=== PATIENT | male | born 1960 | race Caucasian/White ===

== ENCOUNTER 2017-02-13 16:14 | Observation (INO) | payer OTHER ==
--- NOTE | 2017-02-13 16:28 | PDOC ---
History of Present Illness - General History Source: Patient Exam Limitations: No Limitations - History of Present Illness Initial Comments: 02/13/17 16:59 The patient is a 56 year old male, with a significant past medical history of kidney stone and parathyroidism, who presents to the emergency department s/p syncopal episode this morning. The patient reports he was at spin class, when he began to feel lightheaded and dizzy while riding the bike. Patient reports sitting down and remembering that he was dizzy, but before he knew it he slipped into a dreamlike state, and passed out. Patient states witnesses reported patient was unconscious for 30 seconds- 1 minute. Patient reports landing on his left arm and associated pain, but denies any head trauma, neck pain or back pain. Patient reports waking up on the floor, and feeling at baseline. When EMS arrived on scene, patient was examined and had his vitals taken, which were normal, but was told he was dehydrated. Patient reports having 2 bottles of water after episode, ambulating on his own and driving home. Patient reports he feels fine now, but was advised by his PCP to follow- up in the ED for further evaluation. As per , this spin class is part of the patients daily routine. Patient denies any fever, chills, or headache. He denies any chest pain, shortness of breath, diaphoresis, palpitations, or lower extremity edema. He denies any nausea, vomiting, diarrhea, constipation, or changes in urination. Allergies: NKDA Past Surgical History: None reported Social History: Non smoker. No ETOH or recreational drug use. <Devante Mercado - Last Filed: 02/13/17 16:59> <Maren Thorpe - Last Filed: 02/13/17 19:04> - General Chief Complaint: Syncope/Near Syncope Stated Complaint: FAINTED WHILE Time Seen by Provider: 02/13/17 16:28 Past History <Devante Mercado - Last Filed: 02/13/17 16:59> <Maren Thorpe - Last Filed: 02/13/17 19:04> - Past Medical History Allergies/Adverse Reactions: Allergies Allergy/AdvReac Type Severity Reaction Status Date / Time No Known Allergies Allergy Verified 02/13/17 16:16 Home Medications: Ambulatory Orders NK [No Known Home Medication] 02/13/17 Review of Systems - Review of Systems Able to Perform ROS?: Yes Comments:: 02/13/17 16:59 GENERAL/CONSTITUTIONAL: No fever or chills. No weakness. HEAD, EYES, EARS, NOSE AND THROAT: No change in vision. No ear pain or discharge. No sore throat. CARDIOVASCULAR: No chest pain or shortness of breath. RESPIRATORY: No cough, wheezing, or hemoptysis. GASTROINTESTINAL: No nausea, vomiting, diarrhea or constipation. GENITOURINARY: No dysuria, frequency, or change in urination. MUSCULOSKELETAL: Yes left arm pain. No other joint or muscle swelling or pain. No neck or back pain. SKIN: No rash NEUROLOGIC: Yes dizziness, lightheadedness, loss of consciousness. No headache or change in strength/sensation. ENDOCRINE: No increased thirst. No abnormal weight change. HEMATOLOGIC/LYMPHATIC: No anemia, easy bleeding, or history of blood clots. ALLERGIC/IMMUNOLOGIC: No hives or skin allergy. <Mercado,Giomilsy - Last Filed: 02/13/17 16:59> *Physical Exam - Vital Signs Last Vital Signs Temp Pulse Resp BP Pulse Ox 98.5 F 69 20 151/101 97 02/13/17 16:15 02/13/17 16:15 02/13/17 16:15 02/13/17 16:15 02/13/17 16:15 - Physical Exam Comments: 02/13/17 16:59 GENERAL: Awake, alert, and fully oriented, in no acute distress HEAD: No signs of trauma EYES: PERRLA, EOMI, sclera anicteric, conjunctiva clear ENT: Auricles normal inspection, hearing grossly normal, nares patent, oropharynx clear without exudates. Moist mucosa NECK: Normal ROM, supple, no lymphadenopathy, JVD, or masses LUNGS: Breath sounds equal, clear to auscultation bilaterally. No wheezes, and no crackles HEART: Regular rate and rhythm, normal S1 and S2, no murmurs, rubs or gallops ABDOMEN: Soft, nontender, normoactive bowel sounds. No guarding, no rebound. No masses EXTREMITIES: Normal range of motion, no edema. No clubbing or cyanosis. No cords, erythema, or tenderness NEUROLOGICAL: Cranial nerves II through XII grossly intact. Normal speech, normal gait SKIN: Warm, Dry, normal turgor, no rashes or lesions noted. <Devante Mercado - Last Filed: 02/13/17 16:59> ED Treatment Course - LABORATORY CBC & Chemistry Diagram: 02/13/17 17:11 02/13/17 17:11 <Maren Thorpe - Last Filed: 02/13/17 19:04> Medical Decision Making - Medical Decision Making 02/13/17 19:03 patient presents to the ED with exertional syncope. Labs and EKG are normal, but given exertional syncope will admit for observation,. <Maren Thorpe - Last Filed: 02/13/17 19:04> *DC/Admit/Observation/Transfer - Attestations Scribe Attestion: 02/13/17 16:59 Documentation prepared by Devante Mercado, acting as medical doctor md/medical director for Maren Thorpe MD. <Devante Mercado - Last Filed: 02/13/17 16:59> - Discharge Dispostion Admit: Yes <Maren Thorpe - Last Filed: 02/13/17 19:04> Diagnosis at time of Disposition: Syncope Qualifiers: Syncope type: unspecified Qualified Code(s): R55 - Syncope and collapse - Discharge Dispostion Condition at time of disposition: Good
[2017-02-13 17:39] LABS: BASO % 0.5 % (0-2.0); EOS % 1.6 % (0-4.5); MCH 30.3 pg (25.7-33.7); MCHC 33.6 g/dl (32.0-35.9); MEAN PLT VOLUME 8.5 fl (7.5-11.1); NEUT % 69.2 % (42.8-82.8); PLATELET COUNT 261 K/MM3 (134-434); RDW 12.5 % (11.9-15.9); WHITE BLOOD COUNT 8.5 K/mm3 (4.0-10.8)
[2017-02-13 17:52] LABS: ALBUMIN 4.3 g/dl (3.5-5.0); ALK PHOS 30 U/L (32-92); ANION GAP 9 (8-16); BILIRUBIN,TOTAL 0.7 mg/dl (0.2-1.0); CALCIUM 8.9 mg/dl (8.4-10.2); CO2 26 mmol/L (22-28); CPK 204 IU/L (39-308); CREATININE 1.2 mg/dl (0.6-1.3); GLUCOSE,RANDOM 85 mg/dl (74-106); SGOT/AST 27 U/L (10-42); SGPT/ALT 27 U/L (10-40); TOT PROT 6.4 g/dl (6.4-8.3)
[2017-02-13 17:58] LABS: TROPONIN I (DFP) < 0.03 ng/ml (0.03-0.50)
--- NOTE | 2017-02-13 20:09 | HP ---
CHIEF COMPLAINT: Syncopized during spin class PCP: Tracy Parikh [place] HISTORY OF PRESENT ILLNESS: 56 year-old male with a PMH significant for parathyroidism and one episode of kidney stones x 8 years, on no home medications. Attended a spin class starting at 6:00am today and at about 6:40am he felt dizzy and detached, as if in a dream state. Witnesses say he passed out for about 30 seconds. Patient states he normally hydrates before class and by the time he is 40 minutes into a class he usually drinks a large bottle of water. Today, he did not hydrate at all either before or during class, he found his water bottle full after he regained consciousness. Patient goes to spin class 6 days per week. He denies chest pain , palpitations, SOB, COLON, orthopnea, or lower extremity edema. Patient's last checkup was in 2015, his BP was 30 points lower. He feels his higher BP now is the result of weight gain. ER course was notable for: (1) BP 151/101 (3) ECG sinus rhythm @ 65bpm Recent Travel: September 2016 [place] PAST MEDICAL HISTORY: Parathyroidism Kidney stones x 8 years ago PAST SURGICAL HISTORY: None reported Social History: Smoking: no Alcohol: rare Drugs: no Family History: mother late 70's with "problematic kidney"; sister with one functioning kidney; father 85 a&w Allergies No Known Allergies Allergy (Verified 02/13/17 16:16) HOME MEDICATIONS: Home Medications Medication Instructions Recorded NK [No Known Home Medication] 02/13/17 REVIEW OF SYSTEMS CONSTITUTIONAL: Absent: fever, chills, diaphoresis, generalized weakness, malaise, loss of appetite, weight change HEENT: Absent: rhinorrhea, nasal congestion, throat pain, throat swelling, difficulty swallowing, mouth swelling, ear pain, eye pain, visual changes CARDIOVASCULAR: Present: syncope with prodrome Absent: chest pain, syncope, palpitations, irregular heart rate, lightheadedness , peripheral edema RESPIRATORY: Absent: cough, shortness of breath, dyspnea with exertion, orthopnea, wheezing, stridor, hemoptysis GASTROINTESTINAL: Absent: abdominal pain, abdominal distension, nausea, vomiting, diarrhea, constipation, melena, hematochezia GENITOURINARY: Absent: dysuria, frequency, urgency, hesitancy, hematuria, flank pain, genital pain MUSCULOSKELETAL: Absent: myalgia, arthralgia, joint swelling, back pain, neck pain SKIN: Absent: rash, itching, pallor HEMATOLOGIC/IMMUNOLOGIC: Absent: easy bleeding, easy bruising, lymphadenopathy, frequent infections ENDOCRINE: Absent: unexplained weight gain, unexplained weight loss, heat intolerance, cold intolerance NEUROLOGIC: Absent: headache, focal weakness or paresthesias, dizziness, unsteady gait, seizure, mental status changes, bladder or bowel incontinence PSYCHIATRIC: Absent: anxiety, depression, suicidal or homicidal ideation, hallucinations. PHYSICAL EXAMINATION Vital Signs - 24 hr 02/13/17 02/13/17 02/13/17 16:15 17:30 18:35 Temperature 98.5 F 98.5 F Pulse Rate 69 Pulse Rate [ 83 70 Left] Respiratory 20 20 20 Rate Blood Pressure 151/101 Blood Pressure 152/98 164/106 [Right Arm] O2 Sat by Pulse 97 98 98 Oximetry (%) GENERAL: Awake, alert, and fully oriented, in no acute distress. HEAD: Normal with no signs of trauma. EYES: Pupils equal, round and reactive to light, extraocular movements intact, sclera anicteric, conjunctiva clear. No lid lag. EARS, NOSE, THROAT: Ears normal, nares patent, oropharynx clear without exudates. Moist mucous membranes. NECK: Normal range of motion, supple without lymphadenopathy, JVD, or masses. LUNGS: Breath sounds equal, clear to auscultation bilaterally. No wheezes, and no crackles. No accessory muscle use. HEART: Regular rate and rhythm, normal S1 and S2 without murmur, rub or gallop. ABDOMEN: Soft, nontender, not distended, normoactive bowel sounds, no guarding, no rebound, no masses. No hepatomegaly or splenomegaly. MUSCULOSKELETAL: Normal range of motion at all joints. No bony deformities or tenderness. No CVA tenderness. UPPER EXTREMITIES: 2+ pulses, warm, well-perfused. No cyanosis. No clubbing. No peripheral edema. LOWER EXTREMITIES: 2+ pulses, warm, well-perfused. No calf tenderness. No peripheral edema. NEUROLOGICAL: Cranial nerves II-XII intact. Normal speech. Laboratory Results - last 24 hr 02/13/17 02/13/17 17:11 17:11 WBC 8.5 RBC 4.59 Hgb 13.9 Hct 41.3 MCV 90.0 MCH 30.3 MCHC 33.6 RDW 12.5 Plt Count 261 MPV 8.5 Neutrophils % 69.2 Lymphocytes % 19.4 Monocytes % 9.3 Eosinophils % 1.6 Basophils % 0.5 Sodium 136 Potassium 4.1 Chloride 101 Carbon Dioxide 26 Anion Gap 9 BUN 23 H Creatinine 1.2 Creat Clearance w eGFR > 60 Random Glucose 85 Calcium 8.9 Total Bilirubin 0.7 AST 27 ALT 27 Alkaline Phosphatase 30 L Creatine Kinase 204 Creatine Kinase Index 1.9 CK-MB (CK-2) 3.9 Troponin I < 0.03 L Total Protein 6.4 Albumin 4.3 ASSESSMENT/PLAN 56 year-old male with a PMH significant for parathyroidism and kidney stones. Syncopal episode during spin class. Syncope --first troponin negative, two pending --ECG not suggestive of acute ischemic event --no events on telemetry --CXR --Echo, US carotids --thyroid panel --lipid panel --orthostatics --cardiology consult --NPO after midnight in event stress test tomorrow Hypertension --last time BP checked was 2 years ago so unknown baseline --significant family history of kidney disease --patient refused anti-hypertensive medication FEN Fluids: PO intake adequate Electrolytes: replete as indicated Nutrition: low sodium; NPO after midnight DVT prophylaxis: lovenox Dispo: continues to require observation. Full Code. Visit type - Emergency Visit Emergency Visit: Yes ED Registration Date: 02/13/17 Care time: The patient presented to the Emergency Department on the above date and was hospitalized for further evaluation of their emergent condition. - New Patient This patient is new to me today: Yes Date on this admission: 02/13/17 - Critical Care Critical Care patient: No
[2017-02-13 22:31] VITALS: BMI 28.6
[2017-02-13] MEDS: LISINOPRIL 10 MG TABLET (FP) PO SCH (23:05)
[2017-02-13] MEDS ORDERED: ASPIRIN 325 MG ENTERIC COATED TABLET (FP) PO ONE (23:50)
[2017-02-14 08:32] VITALS: TEMP 97.3
[2017-02-14 08:42] LABS: BASO % 0.5 % (0-2.0); EOS % 2.6 % (0-4.5); MCH 30.4 pg (25.7-33.7); MCHC 34.1 g/dl (32.0-35.9); MEAN CELL VOLUME 89.4 fl (80-96); MEAN PLT VOLUME 8.4 fl (7.5-11.1); NEUT % 65.8 % (42.8-82.8); PLATELET COUNT 242 K/MM3 (134-434); RDW 12.3 % (11.9-15.9); WHITE BLOOD COUNT 6.6 K/mm3 (4.0-10.8)
[2017-02-14 08:54] LABS: ALBUMIN 3.8 g/dl (3.5-5.0); ALK PHOS 29 U/L (32-92); ANION GAP 7 (8-16); BILIRUBIN,TOTAL 0.8 mg/dl (0.2-1.0); CALCIUM 8.6 mg/dl (8.4-10.2); CO2 25 mmol/L (22-28); GLUCOSE,RANDOM 96 mg/dl (74-106); MAGNESIUM 1.7 mg/dL (1.8-2.4); SGOT/AST 23 U/L (10-42); SGPT/ALT 24 U/L (10-40); TOT PROT 6.2 g/dl (6.4-8.3)
[2017-02-14] MEDS ORDERED: MAGNESIUM SULFATE 2 GM in SODIUM CHLORIDE 100 ML IVPB ONE (09:02)
[2017-02-14] MEDS: LISINOPRIL 10 MG TABLET (FP) PO SCH ×2 (09:48→12:15)
[2017-02-14 09:49] LABS: CPK 146 IU/L (39-308)
--- NOTE | 2017-02-14 09:51 | EKG ---
Test Reason : Blood Pressure : / mmHG Vent. Rate : 065 BPM Atrial Rate : 065 BPM P-R Int : 178 ms QRS Dur : 094 ms QT Int : 402 ms P-R-T Axes : 029 040 015 degrees QTc Int : 418 ms NORMAL SINUS RHYTHM NORMAL ECG NO PREVIOUS ECGS AVAILABLE Confirmed by LUKASZ MOJICA MD ([id number] on 02/14/2017 9:51:03 AM Referred By: Speedy LAU Confirmed By:LUKASZ MOJICA MD
[2017-02-14] MEDS ORDERED: ASPIRIN 81 MG CHEWABLE TABLETS PO SCH (10:00)
[2017-02-14] MEDS ORDERED: ENOXAPARIN NA (PORCINE) 40 MG/0.4 ML DISP.SYRIN SQ SCH (10:00)
[2017-02-14 10:17] LABS: TROPONIN I (DFP) < 0.03 ng/ml (0.03-0.50)
[2017-02-14] MEDS ORDERED: LISINOPRIL 5 MG TABLET (FP) ONE (12:10)
--- NOTE | 2017-02-14 12:17 | PN ---
Physical Exam: SUBJECTIVE: Patient seen and examined OBJECTIVE: Vital Signs Period Temp Pulse Resp BP Sys/Orta Pulse Ox Last 24 Hr 97.3 F-98.5 F 64-86 18-20 146-174/86-106 97-98 GENERAL: The patient is awake, alert, and fully oriented, in no acute distress. HEAD: Normal with no signs of trauma. EYES: PERRL, extraocular movements intact, sclera anicteric, conjunctiva clear. No ptosis. ENT: Ears normal, nares patent, oropharynx clear without exudates, moist mucous membranes. NECK: Trachea midline, full range of motion, supple. LUNGS: Breath sounds equal, clear to auscultation bilaterally, no wheezes, no crackles, no accessory muscle use. HEART: Regular rate and rhythm, S1, S2 without murmur, rub or gallop. ABDOMEN: Soft, nontender, nondistended, normoactive bowel sounds, no guarding, no rebound, no hepatosplenomegaly, no masses. EXTREMITIES: 2+ pulses, warm, well-perfused, no edema. NEUROLOGICAL: Cranial nerves II through XII grossly intact. Normal speech, gait not observed. PSYCH: Normal mood, normal affect. SKIN: Warm, dry, normal turgor, no rashes or lesions noted Laboratory Results - last 24 hr 02/13/17 02/13/17 02/13/17 17:11 17:11 23:00 WBC 8.5 RBC 4.59 Hgb 13.9 Hct 41.3 MCV 90.0 MCH 30.3 MCHC 33.6 RDW 12.5 Plt Count 261 MPV 8.5 Neutrophils % 69.2 Lymphocytes % 19.4 Monocytes % 9.3 Eosinophils % 1.6 Basophils % 0.5 Sodium 136 Potassium 4.1 Chloride 101 Carbon Dioxide 26 Anion Gap 9 BUN 23 H Creatinine 1.2 Creat Clearance w eGFR > 60 Random Glucose 85 Calcium 8.9 Magnesium Total Bilirubin 0.7 AST 27 ALT 27 Alkaline Phosphatase 30 L Creatine Kinase 204 Creatine Kinase Index 1.9 CK-MB (CK-2) 3.9 Troponin I < 0.03 L < 0.03 L Total Protein 6.4 Albumin 4.3 02/14/17 02/14/17 02/14/17 07:35 07:35 07:35 WBC 6.6 RBC 4.61 Hgb 14.0 Hct 41.2 MCV 89.4 MCH 30.4 MCHC 34.1 RDW 12.3 Plt Count 242 MPV 8.4 Neutrophils % 65.8 Lymphocytes % 21.8 Monocytes % 9.3 Eosinophils % 2.6 Basophils % 0.5 Sodium 136 Potassium 4.1 Chloride 104 Carbon Dioxide 25 Anion Gap 7 L BUN 20 H Creatinine 1.0 Creat Clearance w eGFR > 60 Random Glucose 96 Calcium 8.6 Magnesium 1.7 L Total Bilirubin 0.8 AST 23 ALT 24 Alkaline Phosphatase 29 L Creatine Kinase 146 Creatine Kinase Index CK-MB (CK-2) Troponin I < 0.03 L Total Protein 6.2 L Albumin 3.8 Active Medications Generic Name Dose Route Start Last Admin Trade Name Freq PRN Reason Stop Dose Admin Aspirin 81 mg 02/14/17 10:00 02/14/17 09:48 Asa - PO 81 mg DAILY [facility] Administration Enoxaparin Sodium 40 mg 02/14/17 10:00 02/14/17 09:48 Lovenox - SQ Not Given DAILY [facility] Lisinopril 10 mg 02/13/17 21:00 02/14/17 12:15 Prinivil PO 10 mg DAILY [facility] Administration ASSESSMENT/PLAN:
--- NOTE | 2017-02-14 12:17 | CON.CARD ---
Cardiology Consult (text) - Consultation Consultation Note: cc: syncope hpi: 56 m hx htn here with syncope. Pt has no hx hrt dz, no hx syncope. Does spin class frequently w/o sxs. Yesterday went to spin class w/o eating breakfast or drinking fluids. He was on bike for 40 mins and did not drink anything. Then he felt lightheaded and next remembers waking up on floor next to bike. Was told he woke up immediately. EMS came and brought to ER. BP and glucose ok. Pt had no palps, cp, sob, dizzy, pnd, orthopnea, le edema. Feels fine now. pmh: per hpi psh: parathyroid surgery social: no tob fam: no premature cad, scd ros: per hpi; no nvd, fever, gib, hematuria, dysuria, muscle pain, cameron, vision changes meds: Home Medications Medication Instructions Recorded NK [No Known Home Medication] 02/13/17 pe: Vital Signs Period Temp Pulse Resp BP Sys/Orta Pulse Ox Last 24 Hr 97.3 F-98.5 F 64-86 18-20 146-174/86-106 97-98 nad no jvd rrr s1s2 no mrg cta bl nl eff aaox3 no le e/c/c abd nt nd pos bs no jaunidce diaphoresis pos dp pt no carotid bruits Laboratory Last Values WBC 6.6 K/mm3 (4.0-10.8) 02/14/17 07:35 RBC 4.61 M/mm3 (4.00-5.60) 02/14/17 07:35 Hgb 14.0 GM/dl (11.7-16.9) 02/14/17 07:35 Hct 41.2 % (35.4-49) 02/14/17 07:35 MCV 89.4 fl (80-96) 02/14/17 07:35 MCH 30.4 pg (25.7-33.7) 02/14/17 07:35 MCHC 34.1 g/dl (32.0-35.9) 02/14/17 07:35 RDW 12.3 % (11.9-15.9) 02/14/17 07:35 Plt Count 242 K/MM3 (134-434) 02/14/17 07:35 MPV 8.4 fl (7.5-11.1) 02/14/17 07:35 Neutrophils % 65.8 % (42.8-82.8) 02/14/17 07:35 Lymphocytes % 21.8 % (8-40) 02/14/17 07:35 Monocytes % 9.3 % (3.8-10.2) 02/14/17 07:35 Eosinophils % 2.6 % (0-4.5) 02/14/17 07:35 Basophils % 0.5 % (0-2.0) 02/14/17 07:35 Sodium 136 mmol/L (136-145) 02/14/17 07:35 Potassium 4.1 mmol/L (3.5-5.1) 02/14/17 07:35 Chloride 104 mmol/L (98-107) 02/14/17 07:35 Carbon Dioxide 25 mmol/L (22-28) 02/14/17 07:35 Anion Gap 7 (8-16) L 02/14/17 07:35 BUN 20 mg/dl (7-18) H 02/14/17 07:35 Creatinine 1.0 mg/dl (0.6-1.3) 02/14/17 07:35 Creat Clearance w eGFR > 60 (>60) 02/14/17 07:35 Random Glucose 96 mg/dl (74-106) 02/14/17 07:35 Calcium 8.6 mg/dl (8.4-10.2) 02/14/17 07:35 Magnesium 1.7 mg/dL (1.8-2.4) L 02/14/17 07:35 Total Bilirubin 0.8 mg/dl (0.2-1.0) 02/14/17 07:35 AST 23 U/L (10-42) 02/14/17 07:35 ALT 24 U/L (10-40) 02/14/17 07:35 Alkaline Phosphatase 29 U/L (32-92) L 02/14/17 07:35 Creatine Kinase 146 IU/L (39-308) 02/14/17 07:35 Creatine Kinase Index 1.9 % (0.0-5.0) 02/13/17 17:11 CK-MB (CK-2) 3.9 ng/mL (0.3-4.0) 02/13/17 17:11 Troponin I < 0.03 ng/ml (0.03-0.50) L 02/14/17 07:35 Total Protein 6.2 g/dl (6.4-8.3) L 02/14/17 07:35 Albumin 3.8 g/dl (3.5-5.0) 02/14/17 07:35 cxr: clear lungs carotid us 01/2017: min dz, no sig stenosis ecg 02/13/17: sr, nl intervals, no ischemic changes a/p: 56 m hx htn here with syncope. syncope: -likely vasovagal. pt instructed to maintain adequate po intake/hydration -no signs acs, ce's neg, ecg benign -carotid, tele unremarkable -no further sxs -echo and ett pending, if both benign then ok for dc from cardiac pov with outpt cardio f/u for possible event monitor htn: -cont lisinopril
--- NOTE | 2017-02-14 13:37 | TRE ---
Protocol Name : DEBBI Max Work Load (METS*10) : 104 Time In Exercise Phase : 00:08:59 Max. Systolic BP : 190 mmHg Max Diastolic BP : 90 mmHg Max Heart Rate : 139 BPM Max Predicted Heart Rate : 164 BPM Attending Physician : DR. DELANEY Reason For Termination : Target Heart Rate Achieved Reason for Test : EXERTIONAL SYNCOPE Stress Protocol : DEBBI Rest HR : 81 BPM PeakEx METs : 10.4 METS Recovery ECG Response (OLD) : Diagnosis : The patient completed 8:59 of a standard Debib Protocol achieving a workload of 10.4 METS. The resting heart rate of 64 bpm artie to a peak of 140 bpm representing 85% of age predicted maximum heart rate. The resting blood pressure of 146/88 artie to a peak of 190/90. The test was terminated due to achievement of the target heart rate. The baseline ECG showed normal sinus rhythm at 64bpm. There were no arrhythmias and no ischemic ST changes noted during exercise nor during recovery. Patient remained asymptomatic throughout the exam. CONCLUSION: Negative/normal exercise treadmill stress test. Good exercise capacity. Normal blood pressure response to exercise. Confirmed by AAKASH DELANEY MD ([id number]) on 02/14/2017 1:37:09 PM
--- NOTE | 2017-02-14 13:41 | DS ---
Physical Exam: SUBJECTIVE: Patient seen and examined, ambulatory at bedside denies any chest pain or shortness of breath. OBJECTIVE:56 year-old male with a PMH significant for parathyroidism and one episode of kidney stones x 8 years, on no home medications. Attended a spin class starting at 6:00am today and at about 6:40am he felt dizzy and detached, as if in a dream state. Witnesses say he passed out for about 30 seconds. Patient states he normally hydrates before class and by the time he is 40 minutes into a class he usually drinks a large bottle of water. Today, he did not hydrate at all either before or during class, he found his water bottle full after he regained consciousness. Patient goes to spin class 6 days per week. He denies chest pain, palpitations, SOB, COLON, orthopnea, or lower extremity edema. Patient's last checkup was in 2015, his BP was 30 points lower. He feels his higher BP now is the result of weight gain. ER course was notable for: (1) BP 151/101 (3) ECG sinus rhythm @ 65bpm Vital Signs Period Temp Pulse Resp BP Sys/Orta Pulse Ox Last 24 Hr 97.3 F-98.5 F 64-86 18-20 146-174/86-106 97-98 PHYSICAL EXAM GENERAL: The patient is awake, alert, and fully oriented, in no acute distress. HEAD: Normal with no signs of trauma. EYES: PERRL, extraocular movements intact, sclera anicteric, conjunctiva clear. ENT: Ears normal, nares patent, oropharynx clear without exudates, moist mucous membranes. NECK: Trachea midline, full range of motion, supple. LUNGS: Breath sounds equal, clear to auscultation bilaterally, no wheezes, no crackles, no accessory muscle use. HEART: Regular rate and rhythm, S1, S2 without murmur, rub or gallop. ABDOMEN: Soft, nontender, nondistended, normoactive bowel sounds, no guarding, no rebound, no hepatosplenomegaly, no masses. EXTREMITIES: 2+ pulses, warm, well-perfused, no edema. NEUROLOGICAL: Cranial nerves II through XII grossly intact. Normal speech, gait not observed. PSYCH: Normal mood, normal affect. SKIN: Warm, dry, normal turgor, no rashes or lesions noted. LABS Laboratory Results - last 24 hr 12/28/17 12/28/17 12/28/17 17:11 17:11 23:00 WBC 8.5 RBC 4.59 Hgb 13.9 Hct 41.3 MCV 90.0 MCH 30.3 MCHC 33.6 RDW 12.5 Plt Count 261 MPV 8.5 Neutrophils % 69.2 Lymphocytes % 19.4 Monocytes % 9.3 Eosinophils % 1.6 Basophils % 0.5 Sodium 136 Potassium 4.1 Chloride 101 Carbon Dioxide 26 Anion Gap 9 BUN 23 H Creatinine 1.2 Creat Clearance w eGFR > 60 Random Glucose 85 Calcium 8.9 Magnesium Total Bilirubin 0.7 AST 27 ALT 27 Alkaline Phosphatase 30 L Creatine Kinase 204 Creatine Kinase Index 1.9 CK-MB (CK-2) 3.9 Troponin I < 0.03 L < 0.03 L Total Protein 6.4 Albumin 4.3 02/14/17 02/14/17 02/14/17 07:35 07:35 07:35 WBC 6.6 RBC 4.61 Hgb 14.0 Hct 41.2 MCV 89.4 MCH 30.4 MCHC 34.1 RDW 12.3 Plt Count 242 MPV 8.4 Neutrophils % 65.8 Lymphocytes % 21.8 Monocytes % 9.3 Eosinophils % 2.6 Basophils % 0.5 Sodium 136 Potassium 4.1 Chloride 104 Carbon Dioxide 25 Anion Gap 7 L BUN 20 H Creatinine 1.0 Creat Clearance w eGFR > 60 Random Glucose 96 Calcium 8.6 Magnesium 1.7 L Total Bilirubin 0.8 AST 23 ALT 24 Alkaline Phosphatase 29 L Creatine Kinase 146 Creatine Kinase Index CK-MB (CK-2) Troponin I < 0.03 L Total Protein 6.2 L Albumin 3.8 HOSPITAL COURSE: Patient was admitted from the emergency department for Exertional Syncope, troponin x 3 wnl, ECG not suggestive of acute ischemic event, no event on telemetry monitoring. no acute pathology noted on chest xray, carotid ultrasound no hemodynamic significant stenosis was noted. Perioperative Nurse, Dr Lynn was consulted. exercise stress test resulted as negative with good excercise capacity. Echo LV wnl. patient does have a past medical history of hypertension, does not take any anti-hypertensive, patient was started lisinopril during this admission. PLAN - continue lisinopril as prescribed - follow up with computer aided design technician within 2 weeks for event monitoring - return precautions reviewed Date of Admission:02/13/17 Date of Discharge: 02/14/17 Minutes to complete discharge: 45 Discharge Summary Reason For Visit: SYNCOPE Current Active Problems Syncope (Acute) Condition: Good - Instructions - Home Medications Comprehensive Discharge Medication List: Ambulatory Orders NK [No Known Home Medication] 02/13/17
[2017-02-14 14:24] VITALS: BP 148/101; PULSE 81
[2017-02-14 17:49] LABS: CHOLESTEROL 224 mg/dl
[2017-02-14 22:21] LABS: FREE T4 1.09 ng/dl (0.76-1.16); THYROID STIMULATING HORMONE 0.83 uIU/ml (0.358-3.74)
--- NOTE | 2017-02-15 18:29 | EKG ---
Test Reason : Blood Pressure : / mmHG Vent. Rate : 062 BPM Atrial Rate : 062 BPM P-R Int : 174 ms QRS Dur : 094 ms QT Int : 420 ms P-R-T Axes : 035 058 014 degrees QTc Int : 426 ms SINUS RHYTHM WHEN COMPARED WITH ECG OF 13-FEB-2017 17:01, NO SIGNIFICANT CHANGE WAS FOUND Confirmed by LUKASZ MOJICA MD ([id number]) on 02/15/2017 6:29:27 PM Referred By: IGNACIO Confirmed By:LUKASZ MOJICA MD
== END 2017-02-14 14:45 | disposition home or self-care (01) ==
LOC: FER 16:14 → FM/S 19:52
PROVIDERS: ADMIT Internal Medicine; ATTEND Nurse Practitioner Family
PROC: 3E033GC Introduction of Other Therapeutic Substance into Peripheral Vein, Percutaneous Approach (ICD-10-PCS; principal; 2017-02-13)
DX: R55 Syncope and collapse (principal); E21.5 Disorder of parathyroid gland, unspecified; Z87.442 Personal history of urinary calculi; I10 Essential (primary) hypertension
CPT/HCPCS: 36415; 71020-TC; 80053; 80061; 82550; 82553; 83735; 84439; 84443; 84481; 84484; 85025; 93005; 93017; 93018; 93306-TC; 93880-TC; 99285-25; G0378